=== PATIENT | male | born 1935 | race African-American/Black ===

== ENCOUNTER 2021-06-07 15:55 | Emergency (ER) | payer MEDICARE, SELFPAY ==
--- NOTE | 2021-06-07 16:03 | ED.SKABFB ---
HPI - Skin/Abscess/Foreign Bdy General Chief complaint: Skin/Abscess/Foreign Body Stated complaint: rash on face Time Seen by Provider: 06/07/21 16:04 Source: patient, family (son) and RN notes reviewed Mode of arrival: ambulatory Limitations: no limitations History of Present Illness HPI narrative: 85-year-old male presents [facility] with complaints of a rash to his face has, neck and upper back. Son reports that patient has a history of atopic dermatitis, chronic. Used to only have outbreaks once or twice a year. Had the last outbreak 3 months ago. Patient states that everywhere is just very itchy. No problems swallowing. No lip or tongue swelling. No chest pain, shortness of breath or abdominal pain States they have talked to his primary care provider, has high hydrocortisone 2-1/2% at home already. Also concerned about the loss of hair and patchy spots on the scalp. States that he normally gets prednisone and an antibiotic. Patient has a history of hypertension, atopic dermatitis, depression. MD complaint: rash Related Data Home Medications Medication Instructions Recorded Confirmed olopatadine 0.2 % eye drops 1 drop EACH EYE DAILY 08/29/19 06/07/21 Allergies Allergy/AdvReac Type Severity Reaction Status Date / Time Penicillins Allergy Mild hives Verified 06/07/21 16:02 Review of Systems Review of Systems: All systems reviewed & are unremarkable except as noted in HPI and below Constitutional: Constitutional: Reports no additional constitutional complaints, Denies chills and Denies fever(s) Eyes: Eyes: Reports no additional eye complaints ENT: Reports system reviewed and no additional complaints, except as documented Cardiovascular: Cardiovascular: Reports no additional cardiovascular complaints Respiratory: Respiratory: Reports no additional respiratory complaints Gastrointestinal: Gastrointestinal: Reports no additional gastrointestinal complaints Musculoskeletal: Musculoskeletal: Reports no additional musculoskeletal complaints Integumentary/Breasts: Skin/Breast: Reports as per HPI Neurologic: Reports system reviewed and no additional complaints, except as documented Psychiatric: Psychiatric: Reports no additional psychiatric complaints Allergic/Immunologic: Allergic/Immunologic: Reports no additional allergic/immunologic complaints PMFSH Past Medical History Medical History Abnormality of gait Benign hypertension Cervical spondylosis with myelopathy and radiculopathy Lichen sclerosus Low vitamin D level Mixed hyperlipidemia Right foot drop Surgical History Surgical History Hx of excision of lamina of cervical vertebra for decompression of spinal cord Social History Social History Social History: Smoking packs per day: 1 Smoking cigarettes per day: 20.0 Years smoked: 25 Smoking pack-years: 25.00 Smoking status: Former smoker Tobacco type: cigarettes Second hand tobacco smoke exposure: No Smoking end date: 06/11/88 Alcohol intake: current Alcohol use details: Occasionally Substance use: never Substance use type: does not use Gender identity (if verbalized by the patient): Male Sexual Orientation (if Verbalized by the Patient): Straight or Heterosexual Spiritual care concerns: No Agree to blood products: Yes Comments At the time of my signature, I reviewed and agree with the nursing past medical, surgical, social, and family history. There is no relevant family history pertinent to the patient complaint. Exam Const: General: no acute distress, alert and ill appearing chronically Nutritional Appearance: well nourished Orientation/consciousness: patient oriented x3 Limitations: no limitations HENMT: Ears: external ears normal, TM's normal bilaterally and EAC's normal Eyes: Conjunct
[2021-06-07 16:06] VITALS: BP 159/89; PULSE 90; RESP 18; TEMP 37.5; O2SAT 96
== END 2021-06-07 16:35 | disposition home or self-care (01) ==
PROVIDERS: Emergency Provider Nurse Practitioner; PCP Family Medicine
DX: L30.9 Dermatitis, unspecified (principal); M47.16 Other spondylosis with myelopathy, lumbar region; M47.26 Other spondylosis with radiculopathy, lumbar region; L90.0 Lichen sclerosus et atrophicus; E78.2 Mixed hyperlipidemia; Z87.891 Personal history of nicotine dependence
CPT/HCPCS: 99213; G0463

== ENCOUNTER 2021-06-26 12:07 | Outpatient (CLI) | payer MEDICARE, SELFPAY ==
--- NOTE | ~2021-06-26 | US_ITS ---
EXAMINATION: US scrotum doppler EXAM DATE: 06/26/2021 13:05 INDICATION: N50.89 - Other specified disorders of the male genital or, swelling. TECHNIQUE: Multiple grayscale and Doppler images of the testicles and scrotum were obtained bilateral ly. There is no prior study for comparison. FINDINGS: Right testicle measures 3.4 x 1.5 x 3.3 cm and is morphologically with some dilated rete testes, not a clinically significant finding. There are several other small cystic regions within the testicle up to 6 mm. Low resistance Doppler flow confirmed. The epididymis is unremarkable. There is a moderate- sized varicocele, less diameter up to 4.1 cm. There is small bowel loop in the scrotum demonstrating peristalsis. Notation was made that this puts both testicles toward the left, was difficult to definitively determine left from right. Left testicle measures 4.1 x 2.2 x 3.3 cm and with multiple anechoic intratesticular cystic regions, largest measuring 2.4 cm. Low resistance Doppler flow confirmed. The epididymis is unremarkable. The re is a moderate-sized varicocele, best diameter up to 3.6 cm. IMPRESSION: 1. Large right inguinal hernia containing small bowel. 2. Moderate-sized bilateral varicoceles. 3. Cystic intratesticular regions bilaterally, likely benign etiology. Reviewed, dictated and finalized at location B. ATIONS ANALYST
== END 2021-06-26 12:08 | disposition home or self-care (01) ==
LOC: ANHIMG 12:14
PROVIDERS: PCP Family Medicine; Visit Provider Physician Assistant
DX: N50.89 Other specified disorders of the male genital organs (principal); K40.90 Unilateral inguinal hernia, without obstruction or gangrene, not specified as recurrent; I86.1 Scrotal varices
CPT/HCPCS: 76870; 93976

== ENCOUNTER 2022-07-28 11:30 | Outpatient (CLI) | payer MEDICARE, SELFPAY ==
--- NOTE | ~2022-07-28 | XR_ITS ---
Right wrist Technique: PA, oblique, lateral, and ulnar deviation views were obtained. Clinical History: Pain Findings: No acute fracture or dislocation is seen. There is moderate degenerative change of the radi al scaphoid articulation, with mild degenerative change of the STT articulations. Soft tissues are un remarkable. Impression: No fracture or dislocation. Degenerative changes, as above. Reviewed, dictated and finalized at location [] RONICS TECHNICIAN Impression: No fracture or dislocation. Degenerative changes, as above.
[2022-07-28 12:09] LABS: Basophils Percent Auto 0.5 % (0.2-1.2); Eosinophils Absolute Auto 0.2 K/mm3 (0-0.3); Eosinophils Percent Auto 3.6 % (0-4.4); Hematocrit 39.8 % (42.0-52.0); Immature Granulocyte Absolute 0.02 K/mm3 (0.00-0.031); Immature Granulocyte Percent A 0.3 % (0-0.5); Lymphocytes Absolute Auto 1.09 K/mm3 (0.9-3.2); Mean Corpuscular HGB Conc 32.7 g/dl (32-36); Mean Corpuscular Hemoglobin 27.4 pg (26-34); Mean Platelet Volume 9.1 fl (7.4-10.4); Monocytes Absolute Auto 0.7 K/mm3 (0.1-0.6); Monocytes Percent Auto 11.1 % (2.6-8.5); Neutrophils Absolute Auto 4.3 K/mm3 (1.3-6.7); Neutrophils Percent Auto 67.5 % (45.5-73.1); Platelet Count Result 303 k/mm3 (150-375); Red Blood Count 4.74 M/mm3 (4.6-6.20); Red Cell Distribution Width 13.7 % (11.5-14.5); White Blood Count 6.4 K/mm3 (4.5-10.0)
[2022-07-28 12:14] LABS: Alanine Aminotransferase 17 U/L (6-50); Albumin Level 4.3 g/dL (3.5-5.1); Alkaline Phosphatase 89 U/L (38-126); Anion Gap 8 mmol/L (8-16); Aspartate Amino Transferase 25 U/L (17-59); Bilirubin,Total 0.6 mg/dL (0.2-1.3); Blood Urea Nitrogen 21 mg/dL (9-20); Calcium 8.7 mg/dL (8.4-10.2); Carbon Dioxide 29 mmol/L (22-30); Chloride 99 mmol/L (98-107); Estimated Glomerular Filt Rate > 60; Glucose 118 mg/dL (65-110); Potassium 3.3 mmol/L (3.4-5.0); Sodium 136 mmol/L (137-145); Uric Acid 8.3 mg/dL (3.5-8.5)
[2022-07-28 12:19] LABS: Add Urine Microscopic? YES; Appearance Urine Clear (Clear); Bilirubin Urine Negative (Negative); Blood Urine Trace-Intact (Negative); Color Urine Yellow (Yellow); Glucose Urine UA Negative (Negative); Ketones Urine Trace mg/dL (Negative); Leukocyte Esterase Ur Negative LEU/UL (Negative); Nitrate Urine Negative (Negative); Protein Urine Trace mg/dL (Negative); pH Urine 5.5 (5.0-9.0)
[2022-07-28 12:36] LABS: Mucus Urine Rare /lpf; RBC Urine 0-2 /hpf (0-2); Squamous Epithelial Cell Urine Rare /hpf (Few); WBC Urine 0-3 /hpf
[2022-07-28 13:05] LABS: Thyroid Stimulating Hormone Reflex 0.887 uIU/mL (0.465-4.68)
== END 2022-07-28 11:31 | disposition home or self-care (01) ==
PROVIDERS: PCP Family Medicine; Visit Provider Nurse Practitioner Gerontology
DX: M25.531 Pain in right wrist (principal); R41.82 Altered mental status, unspecified; R30.0 Dysuria
CPT/HCPCS: 36415; 73110; 80053; 81001; 84443; 84550; 85025

== ENCOUNTER 2022-08-16 16:25 | Emergency (ER) | payer MEDICARE, SELFPAY ==
[2022-08-16] VITALS (8 sets, daily range): BP systolic 146–169; BP diastolic 68–82; PULSE 69–82; RESP 14–19; TEMP 36.7–37.1; O2SAT 98–100
--- NOTE | ~2022-08-16 | XR_ITS ---
EXAMINATION: XR chest 1V portable Exam Date/Time: 08/16/2022 17:30 ART THERAPY SPECIALIST HISTORY: AMS Comparison: None available. RESULT: Lines, tubes, and devices: None. Lungs and pleura: Slightly low lung volumes. Senescent change, otherwise clear. Cardiomediastinal silhouette: Unremarkable. Other: No acute osseous or upper abdominal finding. IMPRESSION: No acute cardiopulmonary process. Reviewed, dictated and finalized at location K. THERAPY SPECIALIST
--- NOTE | 2022-08-16 16:31 | ECG_ITS ---
Measurements Intervals [place] Rate: 70 P: 34 MA: 163 QRS: -17 QRSD: 110 T: 37 QT: 407 QTc: 441 Interpretive Statements SINUS RHYTHM VOLTAGE CRITERIA FOR LVH BASELINE ARTIFACT- I, II, III, AVR, AVL, AVF BORDERLINE ECG NO PREVIOUS ECG AVAILABLE FOR COMPARISON Electronically Signed On 08-17-2022 7:57:19 OPERATING ROOM MANAGER by Darryl Kaye D.O.
--- NOTE | 2022-08-16 17:06 | ED.AMS ---
HPI - Altered Mental Status General Chief Complaint: Altered Mental Status Stated Complaint: Altered Mental Status Time Seen by Provider: 08/16/22 16:55 History of Present Illness HPI narrative: 87-year-old male with a history of hypertension and dementia presents to the emergency room via EMS for evaluation of altered mental status. Patient is accompanied by his and son. Son was available to get him additional history. Son states that patient is displaying no increase in agitation at the assisted living facility and increased fatigue. Patient has no complaints at this time. On presentation to the emergency room, son states that patient is back to his baseline mental status which is friendly and alert and oriented x1. Denies any focal neuro deficits. Related Data Allergies Allergy/AdvReac Type Severity Reaction Status Date / Time amoxicillin Allergy Rash Verified 08/16/22 16:30 erythromycin base Allergy Unknown Verified 08/16/22 16:30 Penicillins Allergy Unknown Verified 08/16/22 16:30 Review of Systems Review of Systems: CONSTITUTIONAL: Denies fever, chills, or sweats. EYES: Denies visual changes, redness, or discharge. ENT: Denies rhinorrhea, congestion, sore throat, or otalgia. CARDIOVASCULAR: Denies chest pain, palpitations, or edema. RESPIRATORY: Denies cough or dyspnea. GASTROINTESTINAL: Denies abdominal pain, nausea, vomiting, or diarrhea. GENITOURINARY: Denies dysuria or hematuria. SKIN: Denies rash or itching. MUSCULOSKELETAL: Denies back pain, joint pain, or myalgia. NEUROLOGIC: Denies headache, numbness, dizziness, or weakness. PSYCHIATRIC: Denies anxiety or depression. Exam Narrative: GENERAL: Chronically ill-appearing, well-nourished, no physical limitations, and in no acute distress. HEAD: Normocephalic, atraumatic. EYES: Conjunctivae normal, PERRLA and EOMI. CHEST: Clear to auscultation. No respiratory distress. No wheezes rales or rhonchi. HEART: Regular rate and rhythm. No murmur heard. Normal peripheral pulses. ABDOMEN: Soft, nontender, nondistended, normal active bowel sounds. BACK: No CVA tenderness EXTREMITIES: Normal range of motion. No edema. No clubbing or cyanosis SKIN: Warm, dry, no rash. No noted wounds NEURO: No focal deficits. Alert and oriented x 1. MAEW. CN's II-XI intact bilaterally, normal gait PSYCH: Cooperative. Normal mood and affect. Course Vital Signs Vital signs: Vital Signs Temperature 37.1 C 08/16/22 16:27 Pulse Rate 82 08/16/22 16:27 Respiratory Rate 15 08/16/22 16:27 Blood Pressure 146/74 H 08/16/22 16:27 Pulse Oximetry 99 08/16/22 16:27 Oxygen Delivery Room Air 08/16/22 16:27 Temperature 37.1 C 08/16/22 16:27 Pulse Rate 71 08/16/22 17:15 Respiratory Rate 19 08/16/22 17:15 Blood Pressure 169/82 H 08/16/22 16:54 Pulse Oximetry 100 08/16/22 17:15 Oxygen Delivery Room Air 08/16/22 16:27 MDM - Altered Mental Status MDM Narrative Medical decision making narrative: 87-year-old male presenting with altered mental status. Abdomen exam are consistent with any toxic metabolic etiology. Patient does not appear intoxicated or withdrawing. CBC and CMP largely unremarkable, CMP did demonstrate mild dehydration. Patient did not demonstrate any seizure-like activity or have any unilateral focal deficits so CVA was unlikely. Patient probably experiencing advancement of his dementia. Lab Data 08/16/22 17:06 08/16/22 17:06 Labs: Lab Results 08/16/22 08/16/22 08/16/22 Range/Units 17:06 17:06 17:06 WBC 5.3 (4.5-10.0) K/mm3 RBC 4.88 (4.6-6.20) M/mm3 Hgb 13.2 L (14.0-18.0) g/dL Hct 41.3 L (42.0-52.0) % MCV 84.6 (80-100) fl MCH 27.0 (26-34) pg MCHC 32.0 (32-36) g/dl RDW 14.9 H (11.5-14.5) % Plt Count 273 (150-375) k/mm3 MPV 9.0 (7.4-10.4) fl Immature Gran % (Auto) 0.4 (0-0.5) % Neut % (Auto) 64.1 (45.5-73.1) % Lymph % (Auto) 16.7 L (18.3
[2022-08-16 17:12] LABS: Add Urine Microscopic? YES; Appearance Urine Clear (Clear); Basophils Percent Auto 0.4 % (0.2-1.2); Bilirubin Urine Negative (Negative); Blood Urine 1+ (Negative); Color Urine Yellow (Yellow); Eosinophils Absolute Auto 0.3 K/mm3 (0-0.3); Eosinophils Percent Auto 4.7 % (0-4.4); Glucose Urine UA Negative (Negative); Hematocrit 41.3 % (42.0-52.0); Hemoglobin 13.2 g/dL (14.0-18.0); Immature Granulocyte Absolute 0.02 K/mm3 (0.00-0.031); Immature Granulocyte Percent A 0.4 % (0-0.5); Ketones Urine Negative (Negative); Leukocyte Esterase Ur Negative LEU/UL (Negative); Lymphocytes Absolute Auto 0.89 K/mm3 (0.9-3.2); Lymphocytes Percent Auto 16.7 % (18.3-44.2); Mean Corpuscular Volume 84.6 fl (80-100); Monocytes Absolute Auto 0.7 K/mm3 (0.1-0.6); Monocytes Percent Auto 13.7 % (2.6-8.5); Neutrophils Absolute Auto 3.4 K/mm3 (1.3-6.7); Neutrophils Percent Auto 64.1 % (45.5-73.1); Nitrate Urine Negative (Negative); Platelet Count Result 273 k/mm3 (150-375); Protein Urine Negative (Negative); Red Blood Count 4.88 M/mm3 (4.6-6.20); Red Cell Distribution Width 14.9 % (11.5-14.5); Specific Grav Ur 1.025 (1.001-1.035); Urobilinogen Urine 0.2 mg/dL (<2.0); White Blood Count 5.3 K/mm3 (4.5-10.0)
[2022-08-16 17:30] LABS: Alanine Aminotransferase 27 U/L (6-50); Albumin Level 4.5 g/dL (3.5-5.1); Alkaline Phosphatase 104 U/L (38-126); Anion Gap 8 mmol/L (8-16); Aspartate Amino Transferase 30 U/L (17-59); Bilirubin,Total 0.7 mg/dL (0.2-1.3); Blood Urea Nitrogen 33 mg/dL (9-20); Calcium 8.9 mg/dL (8.4-10.2); Carbon Dioxide 31 mmol/L (22-30); Chloride 103 mmol/L (98-107); Estimated CRCL calculation 31 ml/min; Estimated Glomerular Filt Rate 54; Glucose 94 mg/dL (65-110); INR 1.1; Partial Thromboplastin Time 29.9 SECONDS (22.3-36.8); Potassium 3.2 mmol/L (3.4-5.0); Prothrombin Time 13.6 Seconds (11.1-14.7); Sodium 142 mmol/L (137-145)
[2022-08-16 17:37] LABS: Mucus Urine Rare /lpf; RBC Urine 0-2 /hpf (0-2); WBC Urine 0-3 /hpf
[2022-08-16 17:47] LABS: Influenza A QL RT-PCR Negative (Negative); Influenza B QL RT-PCR Negative (Negative); SARS-CoV-2 RNA PCR Negative
[2022-08-16] MEDS: SODIUM CHLORIDE 0.9% IV 500 ML 999 ML IV CONT (18:45)
== END 2022-08-16 19:29 ==
PROVIDERS: Emergency Medicine; General Practice; Emergency Provider Nurse Practitioner Family; PCP Family Medicine
DX: R41.82 Altered mental status, unspecified (principal); F03.90 Unspecified dementia, unspecified severity, without behavioral disturbance, psychotic disturbance, mood disturbance, and anxiety; I10 Essential (primary) hypertension; Z20.822 Contact with and (suspected) exposure to COVID-19; R94.31 Abnormal electrocardiogram [ECG] [EKG]
CPT/HCPCS: 36415; 71045; 80053; 81001; 85025; 85610; 85730; 87636; 93005; 96360; 99284; J7040

== ENCOUNTER 2022-12-13 09:45 | Outpatient (CLI) | payer MEDICARE, SELFPAY ==
[2022-12-13 10:08] LABS: Basophils Absolute Auto 0.1 K/mm3 (0.0-0.1); Basophils Percent Auto 0.8 % (0.2-1.2); Eosinophils Absolute Auto 0.4 K/mm3 (0-0.3); Eosinophils Percent Auto 5.8 % (0-4.4); Hematocrit 37.2 % (42.0-52.0); Hemoglobin 11.8 g/dL (14.0-18.0); Immature Granulocyte Absolute 0.01 K/mm3 (0.00-0.031); Immature Granulocyte Percent A 0.2 % (0-0.5); Lymphocytes Absolute Auto 1.75 K/mm3 (0.9-3.2); Lymphocytes Percent Auto 28.9 % (18.3-44.2); Mean Corpuscular HGB Conc 31.7 g/dl (32-36); Mean Corpuscular Hemoglobin 26.6 pg (26-34); Mean Corpuscular Volume 83.8 fl (80-100); Mean Platelet Volume 8.4 fl (7.4-10.4); Monocytes Absolute Auto 0.5 K/mm3 (0.1-0.6); Monocytes Percent Auto 8.3 % (2.6-8.5); Neutrophils Absolute Auto 3.4 K/mm3 (1.3-6.7); Platelet Count Result 401 k/mm3 (150-375); Red Blood Count 4.44 M/mm3 (4.6-6.20); Red Cell Distribution Width 14.3 % (11.5-14.5); White Blood Count 6.1 K/mm3 (4.5-10.0)
[2022-12-13 10:12] LABS: Alanine Aminotransferase 20 U/L (6-50); Alkaline Phosphatase 97 U/L (38-126); Anion Gap 10 mmol/L (8-16); Aspartate Amino Transferase 25 U/L (17-59); Bilirubin,Total 0.5 mg/dL (0.2-1.3); Blood Urea Nitrogen 21 mg/dL (9-20); Carbon Dioxide 28 mmol/L (22-30); Chloride 102 mmol/L (98-107); Cholesterol 159 mg/dL (0-200); Estimated Glomerular Filt Rate 58; Glucose 122 mg/dL (65-110); HDL Direct 33 mg/dL; Potassium 3.2 mmol/L (3.4-5.0); Sodium 140 mmol/L (137-145); Triglycerides 92 mg/dL (<150); Uric Acid 7.9 mg/dL (3.5-8.5)
[2022-12-13 10:23] LABS: LDL Cholesterol Direct 84 mg/dL
== END 2022-12-13 09:46 | disposition home or self-care (01) ==
PROVIDERS: PCP Family Medicine; Visit Provider Family Medicine
DX: E79.0 Hyperuricemia without signs of inflammatory arthritis and tophaceous disease (principal); E78.2 Mixed hyperlipidemia; I10 Essential (primary) hypertension
CPT/HCPCS: 36415; 80053; 80061; 84550; 85025

== ENCOUNTER 2023-08-07 10:40 | Outpatient (CLI) | payer MEDICARE, SELFPAY ==
[2023-08-07 10:58] LABS: Basophils Percent Auto 0.8 % (0.2-1.2); Eosinophils Absolute Auto 0.6 K/mm3 (0-0.3); Eosinophils Percent Auto 12.8 % (0-4.4); Hematocrit 37.6 % (42.0-52.0); Hemoglobin 11.4 g/dL (14.0-18.0); Immature Granulocyte Absolute 0.01 K/mm3 (0.00-0.031); Immature Granulocyte Percent A 0.2 % (0-0.5); Lymphocytes Absolute Auto 1.36 K/mm3 (0.9-3.2); Lymphocytes Percent Auto 28.2 % (18.3-44.2); Mean Corpuscular HGB Conc 30.3 g/dl (32-36); Mean Corpuscular Hemoglobin 25.3 pg (26-34); Mean Corpuscular Volume 83.4 fl (80-100); Mean Platelet Volume 8.4 fl (7.4-10.4); Monocytes Absolute Auto 0.6 K/mm3 (0.1-0.6); Monocytes Percent Auto 11.4 % (2.6-8.5); Neutrophils Absolute Auto 2.3 K/mm3 (1.3-6.7); Neutrophils Percent Auto 46.6 % (45.5-73.1); Platelet Count Result 279 k/mm3 (150-375); Red Blood Count 4.51 M/mm3 (4.6-6.20); Red Cell Distribution Width 15.4 % (11.5-14.5); White Blood Count 4.8 K/mm3 (4.5-10.0)
[2023-08-07 11:09] LABS: Alanine Aminotransferase 14 U/L (6-50); Albumin Level 3.9 g/dL (3.5-5.1); Alkaline Phosphatase 98 U/L (38-126); Anion Gap 7 mmol/L (8-16); Aspartate Amino Transferase 24 U/L (17-59); Bilirubin,Total 0.5 mg/dL (0.2-1.3); Blood Urea Nitrogen 13 mg/dL (9-20); Calcium 9.1 mg/dL (8.4-10.2); Carbon Dioxide 27 mmol/L (22-30); Chloride 109 mmol/L (98-107); Cholesterol 183 mg/dL (0-200); Estimated Glomerular Filt Rate > 60; Glucose 93 mg/dL (65-110); HDL Direct 53 mg/dL; Potassium 4.4 mmol/L (3.4-5.0); Sodium 143 mmol/L (137-145); Triglycerides 90 mg/dL (<150)
[2023-08-07 11:22] LABS: LDL Cholesterol Direct 86 mg/dL
== END 2023-08-07 10:41 | disposition home or self-care (01) ==
PROVIDERS: PCP Family Medicine; Referring Provider Family Medicine; Visit Provider Physician Assistant
DX: E78.2 Mixed hyperlipidemia (principal); F03.90 Unspecified dementia, unspecified severity, without behavioral disturbance, psychotic disturbance, mood disturbance, and anxiety; R26.9 Unspecified abnormalities of gait and mobility; I10 Essential (primary) hypertension; D64.9 Anemia, unspecified; E87.6 Hypokalemia
CPT/HCPCS: 36415; 80053; 80061; 82607; 85025

== ENCOUNTER 2023-08-11 10:03 | Emergency (ER) | payer MEDICARE, SELFPAY ==
[2023-08-11 10:17] VITALS: BP 147/85; PULSE 85; RESP 16; TEMP 36.8; O2SAT 97
[2023-08-11 11:29] LABS: Appearance Urine Clear (Clear); Bilirubin Urine Negative (Negative); Blood Urine Negative (Negative); Color Urine Yellow (Yellow); Glucose Urine UA Negative (Negative); Ketones Urine Negative (Negative); Leukocyte Esterase Ur Negative LEU/UL (Negative); Nitrate Urine Negative (Negative); Protein Urine Negative (Negative); Specific Grav Ur 1.015 (1.001-1.035)
[2023-08-11 11:30] LABS: Add Urine Microscopic? NO
--- NOTE | 2023-08-11 12:23 | PC.NURSE ---
patient's family states that he is feeling better. patient lives at [facility] and he will have the staff monitor further. patient left without being seen.
== END 2023-08-11 13:08 | disposition left against medical advice (07) ==
LOC: ANHED 12:30
PROVIDERS: Emergency Provider Emergency Medicine; PCP Family Medicine
DX: R41.82 Altered mental status, unspecified (principal)
CPT/HCPCS: 81003; 99199

== ENCOUNTER 2023-09-27 16:18 | Emergency (ER) | payer MEDICARE, SELFPAY ==
--- NOTE | 2023-09-27 16:27 | PC.NURSE ---
RN to triage pt. pt. BP 124/78 HR 78 temp 97.7 oral. pt. family member stating I think we are just going to go home.
== END 2023-09-28 05:05 | disposition left against medical advice (07) ==
PROVIDERS: PCP Family Medicine
DX: Z53.21 Procedure and treatment not carried out due to patient leaving prior to being seen by health care provider (principal)
CPT/HCPCS: 99199